=== PATIENT | female | born 1975 | race Caucasian/White ===

== ENCOUNTER 2021-05-08 16:11 | Outpatient (REF) | payer OTHER, SELFPAY ==
--- NOTE | ~2021-05-08 | MM_ITS ---
EXAMINATION: MM SCREENING DIGITAL BREAST TOMOSYNTHESIS, BILATERAL CLINICAL INFORMATION: Screening. Asymptomatic. No prior breast imaging. Age 46. Family history breast cancer maternal grandmother. The lifetime risk of breast cancer based on the Tyrer-Cuzick Model is 13%. COMPARISON: None (current study represents initial baseline exam). TECHNIQUE: Digital breast tomosynthesis is performed in both the craniocaudal and mediolateral oblique views along with computer-aided detection (CAD). Synthesized 2D images are generated from the tomosynthesis. FINDINGS: The breasts are almost entirely fatty (ACR BI-RADS breast composition Category a). There are normal background stromal markings. There is no mass or architectural abnormality. No abnormal calcifications. Dermal lesion overlies the inferior posterior medial right breast. The axilla are unremarkable. MM/MM tomosynthesis screening BI IMPRESSION: No mammographic evidence of malignancy. ASSESSMENT: BI-RADS 2: Benign RECOMMENDATION: Routine annual mammography screening. This patient's information was entered into a reminder system with a target due date for their next mammogram.
== END 2021-05-08 16:12 | disposition home or self-care (01) ==
LOC: HO.MAMMO 16:11
PROVIDERS: Visit Provider Registered Nurse Community Health
DX: Z12.31 Encounter for screening mammogram for malignant neoplasm of breast (principal)
CPT/HCPCS: 77063; 77067

== ENCOUNTER 2021-06-23 16:00 | Outpatient (RCR) | payer OTHER, SELFPAY | END 2021-08-05 11:50 | disposition home or self-care (01) | LOC: HO.PT 16:00 | PROVIDERS: PCP Registered Nurse Community Health; Visit Provider Registered Nurse Community Health | DX: M54.2 Cervicalgia (principal) | CPT/HCPCS: 97014; 97110; 97140; 97161; 97530 ==

== ENCOUNTER 2022-05-13 16:14 | Outpatient (REF) | payer OTHER, SELFPAY ==
--- NOTE | ~2022-05-13 | MM_ITS ---
EXAMINATION: MM SCREENING DIGITAL BREAST TOMOSYNTHESIS, BILATERAL CLINICAL INFORMATION: Screening. Asymptomatic. The lifetime risk of breast cancer based on the Tyrer-Cuzick Model is 12%. COMPARISON: Mammography: 05/08/2021 (baseline) TECHNIQUE: Digital breast tomosynthesis is performed in both the craniocaudal and mediolateral oblique views along with computer-aided detection (CAD). Synthesized 2D images are generated from the tomosynthesis. FINDINGS: The breasts are almost entirely fatty (ACR BI-RADS breast composition Category a). There are no significant masses, abnormal calcifications, or other abnormalities. Background stromal markings are normal. No developing density or architectural abnormality. Dermal lesion again seen overlying the posterior medial right breast. The axilla are unremarkable. No significant changes. MM/MM tomosynthesis screening BI IMPRESSION: No mammographic evidence of malignancy. ASSESSMENT: BI-RADS 2: Benign RECOMMENDATION: Routine annual mammography screening. This patient's information was entered into a reminder system with a target due date for their next mammogram.
== END 2022-05-13 16:15 | disposition home or self-care (01) ==
LOC: HO.MAMMO 16:14
PROVIDERS: PCP Registered Nurse; Visit Provider Registered Nurse
DX: Z12.31 Encounter for screening mammogram for malignant neoplasm of breast (principal)
CPT/HCPCS: 77063; 77067

== ENCOUNTER 2023-05-17 15:47 | Outpatient (REF) | payer MEDICAID, SELFPAY ==
--- NOTE | ~2023-05-17 | MM_ITS ---
EXAMINATION: MM SCREENING DIGITAL BREAST TOMOSYNTHESIS, BILATERAL CLINICAL INFORMATION: Screening. Asymptomatic. COMPARISON: Mammography: This study is compared with prior exams dating back to 2020. TECHNIQUE: Digital breast tomosynthesis is performed in both the craniocaudal and mediolateral oblique views along with computer-aided detection (CAD). Synthesized 2D images are generated from the tomosynthesis. FINDINGS: The breasts are almost entirely fatty (ACR BI-RADS breast composition Category a). There are no significant masses, abnormal calcifications, or other abnormalities. MM/MM tomosynthesis screening BI IMPRESSION: No mammographic evidence of malignancy. ASSESSMENT: BI-RADS BI-RADS 1 - Negative RECOMMENDATION: Routine annual mammography screening. 1 year F/U This examination should not preclude the clinical evaluation of a suspicious palpable abnormality. This patient's information was entered into a reminder system with a target due date for their next mammogram.
== END 2023-05-17 15:48 | disposition home or self-care (01) ==
LOC: HO.MAMMO 15:47
PROVIDERS: PCP Internal Medicine; Visit Provider Registered Nurse
DX: Z12.31 Encounter for screening mammogram for malignant neoplasm of breast (principal)
CPT/HCPCS: 77063; 77067

== ENCOUNTER → 2023-05-17 16:00 | Outpatient (BNV) | payer MEDICAID, SELFPAY | PROVIDERS: PCP Internal Medicine; Visit Provider Radiology Diagnostic Radiology | DX: Z12.31 Encounter for screening mammogram for malignant neoplasm of breast (principal) | CPT/HCPCS: 77063; 77067 ==

== ENCOUNTER 2023-06-22 12:15 | Outpatient (REF) | payer MEDICAID, SELFPAY ==
[2023-06-22 13:19] LABS: MANUAL DIFF FLAG NO
[2023-06-22 13:32] LABS: Red Cell Distribution Width 12.9 % (11.0-16.0); SCAN SMEAR FLAG 1
[2023-06-22 13:34] LABS: Basophils Absolute Auto 0.1 X10*3/uL (0.0-0.2); Basophils Percent Auto 0.8 % (0-2); Eosinophils Absolute Auto 0.3 X10*3/uL (0.0-0.4); Eosinophils Percent Auto 3.5 % (0-4); Hematocrit 40.9 % (37.0-47.0); Hemoglobin 13.6 g/dl (12.0-16.0); Imm Gran Abs Auto 0.01 X10*3/uL (0.00-0.03); Imm Gran Pct Auto 0.1 % (0.0-0.4); Lymphocytes Absolute Auto 3.6 X10*3/uL (1.2-4.9); Lymphocytes Percent Auto 37.7 % (20-40); Mean Corpuscular HGB Conc 33.3 g/dl (31.0-35.0); Mean Corpuscular Hemoglobin 29.6 pg (27.0-33.0); Mean Corpuscular Volume 88.9 fL (80.0-98.0); Mean Platelet Volume 13.5 fL (9.4-12.3); Monocytes Absolute Auto 0.6 X10*3/uL (0.1-1.2); Monocytes Percent Auto 5.9 % (2-11); Neutrophils Absolute Auto 4.9 x10*3/uL (2.0-8.3); Platelet Count 265 X10*3/uL (160-400); White Blood Count 9.5 X10*3/uL (4.8-10.8)
[2023-06-22 13:36] LABS: PLT ABN DIST 1
[2023-06-22 13:40] LABS: Estimated Average Glucose 103 mg/dL; Hemoglobin A1c % 5.2 % (<6.0)
[2023-06-22 14:18] LABS: Alanine Aminotransferase 17 U/L (0-31); Albumin Level 4.1 g/dL (3.5-5.0); Alkaline Phosphatase 63 U/L (39-117); Anion Gap 12 (12-20); Aspartate Amino Transferase 19 U/L (5-31); Bilirubin Direct 0.2 mg/dL (0.0-0.5); Bilirubin Total 0.3 mg/dL (0.0-1.0); Blood Urea Nitrogen 9 mg/dL (9-16); Calcium 9.7 mg/dL (8.4-10.2); Carbon Dioxide 26 mmol/L (22-29); Chloride 106 mmol/L (96-108); Cholesterol 182 mg/dL (<200); Estimated Glomerular Filt Rate > 60; Glucose Random 82 mg/dL (60-115); HDL Cholesterol 55 mg/dL (>40); LDL Cholesterol Calculated 109 mg/dL (<100); Potassium 3.9 mmol/L (3.3-5.1); Sodium 140 mmol/L (135-145); TSH reflex Free T4 0.73 uIU/mL (0.32-4.0); Total Protein 6.8 g/dL (6.5-8.0); Triglycerides 94 mg/dL (<150)
== END 2023-06-22 12:16 | disposition home or self-care (01) ==
LOC: HO.HHCL 12:15
PROVIDERS: Visit Provider Internal Medicine
DX: Z00.00 Encounter for general adult medical examination without abnormal findings (principal); E66.01 Morbid (severe) obesity due to excess calories; Z68.41 Body mass index [BMI] 40.0-44.9, adult
CPT/HCPCS: 36415; 80048; 80061; 80076; 83036; 84443; 85025

== ENCOUNTER 2023-07-09 12:23 | Outpatient (REF) | payer MEDICAID, SELFPAY ==
--- NOTE | ~2023-07-09 | XR_ITS ---
EXAMINATION: XR CHEST CLINICAL INFORMATION: Bronchitis, cough for 2 months. COMPARISON: None available. TECHNIQUE: 2 views of the chest were obtained. FINDINGS: No significant abnormality is noted involving the heart, lungs, mediastinum, bony thorax or soft tissues. XR/XR chest 2V IMPRESSION: Unremarkable chest examination.
== END 2023-07-09 12:24 | disposition home or self-care (01) ==
LOC: HO.HHCX 12:23
PROVIDERS: Visit Provider Internal Medicine
DX: J40 Bronchitis, not specified as acute or chronic (principal)
CPT/HCPCS: 71046

== ENCOUNTER 2023-12-16 16:37 | Emergency (ER) | payer OTHER, SELFPAY ==
--- NOTE | ~2023-12-16 | CT_ITS ---
EXAMINATION: CT HEAD WITHOUT CONTRAST CLINICAL INFORMATION: Fall head strike COMPARISON: None TECHNIQUE: Contiguous axial imaging was performed from the skull base to vertex without intravenous administration of contrast. This CT examination was performed using dose optimization techniques as appropriate, variously including the following: *Automated exposure control *Adjustment of mA and/or kV according to patient size (this includes techniques or standardized protocols for targeted exams where dose is matched to indication/reason for exam; i.e. extremities or head) *Use of iterative reconstruction technique DLP: 1123 mGy-cm FINDINGS: There is no evidence of acute intracranial hemorrhage or territorial infarction. No abnormal mass effect or midline shift is seen. Almaguer to white matter differentiation is well preserved. No extra-axial fluid collections are identified. The ventricles are normal in size. There is no abnormal attenuation within the brain parenchyma. The osseous structures and soft tissues are normal. The mastoid air cells and visualized portions of the paranasal sinuses are well aerated. CT/CT cervical spine wo IV con IMPRESSION: No acute intracranial pathology. EXAMINATION: Noncontrast CT scan of the cervical spine. INDICATION: Neck pain COMPARISON: None. TECHNIQUE: Helical, multidetector axial images were obtained from the occiput to the upper thorax. Coronal and sagittal reformats of the cervical spine were provided for interpretation. DLP: 1123 mGy-cm FINDINGS: No acute fractures or dislocations of the cervical spine are seen. Straightening of the normal cervical curvature. Anatomic alignment and positioning of the vertebral bodies and posterior elements is noted. The atlantoaxial joint and craniovertebral articulations are normal without evidence of subluxation. There is no prevertebral soft tissue swelling. The thyroid gland and visualized portions of the lung apices and mediastinum are unremarkable. IMPRESSION: 1. No acute visible fracture or dislocation. 2. Straightening of the normal cervical curvature.
--- NOTE | ~2023-12-16 | CT_ITS ---
EXAMINATION: CT CHEST, ABDOMEN AND PELVIS withoutCONTRAST CLINICAL INFORMATION: Trauma. COMPARISON: None. TECHNIQUE: Multidetector volumetric CT imaging of the chest, abdomen and pelvis was obtained . Coronal, Sagittal reformatted images preformed at the CT scanner. [This CT examination was performed using dose optimization techniques as appropriate, variously including the following: *Automated exposure control *Adjustment of mA and/or kV according to patient size (this includes techniques or standardized protocols for targeted exams where dose is matched to indication/reason for exam; i.e. extremities or head) *Use of iterative reconstruction technique] DLP: 1421 mGy-cm. FINDINGS: CT CHEST: Lungs: The lungs are clear with no evidence of inflammation or nodules. Mediastinum: The mediastinum is normal. Coronary arteries: No coronary calcification Pleura: There is no pleural effusion. No pleural mass or thickening. Axilla: No lymphadenopathy. CT ABDOMEN AND PELVIS: Liver, Gallbladder and Biliary Tree: The liver is normal in size, shape, and attenuation. No focal hepatic lesion or biliary ductal dilatation is present. The gallbladder is unremarkable with no evidence of radiopaque gallstones, gallbladder wall thickening, or obvious pericholecystic inflammatory changes. Pancreas: No acute change of the pancreas. No mass. No pancreatic duct dilatation. Spleen: Spleen normal in size and contour. No focal lesion. Adrenal Glands: Adrenal glands are normal in size. No focal mass. Kidneys and Ureters: The kidneys are normal in size, shape, and attenuation. No hydronephrosis, hydroureter, or calculi seen. No perinephric stranding. Bladder: Unremarkable. Gastrointestinal Tract: There are scattered diverticula of the sigmoid colon. There is no diverticulitis. There is no bowel wall thickening /edema. There is no bowel obstruction. There is a moderate volume of stool in the colon. The appendix is normal . The small bowel loops are unremarkable. The stomach is normal. There is no hiatal hernia. Mesentery: No focal inflammation. No free fluid. No free air. Abdominal Wall: No significant hernia is appreciated. Lymph Nodes: Normal. Vascular: Unremarkable. Pelvic Viscera: Unremarkable. Osseous Structures: No acute osseous abnormality. Degenerative changes of the lumbosacral junction. Vacuum disc changes of the L5-S1 disc with vertebral endplate spurs. CT/CT abdomen pelvis wo IV con IMPRESSION: No acute abnormality CT of the chest, abdomen or pelvis.
--- NOTE | 2023-12-16 16:47 | ED.GENADULT ---
HPI - General Adult General Chief complaint: Fall Stated complaint: head neck in inj Related Data Allergies Allergy/AdvReac Type Severity Reaction Status Date / Time No Known Allergies Allergy Mild NOT Verified 12/16/23 16:53 APPLICABLE [facility] Social History Social History Advance Directives: No Advance Directives Information Provided: No Physical Exam ED Vital Signs: BMI result Body Mass Index 37.5 Course Course Course Narrative: This is an RME done by IVANIA Cat: Additional HPI, ROS, PE not included below will be deferred to primary provider. 48 year old female no known pmh presents with complaints of pain from fall onto stomach at work this Wednesday. Patient states she has pain in neck, bilateral wirsts, right lower extremity and knee . Pt states later that same day she subsequently was stroke in the head in the center/top of her head and now has consistent head and neck pain in the back of her neck and towards the right side. She states she did not initially hit her head or lose consciousness when she fell. Pt states she is not on blood thinners. Denies numbness and tingling in extremities. No blurry or double vision. Also reports right eyelid drooping and feeling of heaviness. Appearance: Alert.? Oriented X3.? No acute cardiopulmonary distress distress.? Head: Slight tenderness to palpation. Normocephalic, no step-offs or deformities Eyes: Slight eyelid droooping of right eye. NIRU Neck: Normal inspection.? Neck supple.?Discomfort with ROM CVS: Pulses normal.? Respiratory: No respiratory distress.? Abdomen: Soft and nontender.? Skin: ? Normal skin color. Extremities: 5/5 strength to bilateral upper and lower extremities Back: No midline tenderness, no C-spine tenderness, full range of motion, No CVA tenderness bilaterally Neuro: Oriented X 3.? No motor deficit.? No sensory deficit. Medical Decision Making Lab Data 12/16/23 17:20 12/16/23 17:20 Labs: Lab Results 12/16/23 12/16/23 Range/Units 17:20 19:31 WBC 10.9 H (4.8-10.8) X10*3/uL RBC 4.35 (4.20-5.50) X10*6/uL Hgb 13.4 (12.0-16.0) g/dl Hct 38.8 (37.0-47.0) % MCV 89.2 (80.0-98.0) fL MCH 30.8 (27.0-33.0) pg MCHC 34.5 (31.0-35.0) g/dl RDW 13.0 (11.0-16.0) % Plt Count 294 (160-400) X10*3/uL MPV 12.6 H (9.4-12.3) fL Immature Gran % (Auto) 0.4 (0.0-0.4) % Neut % (Auto) 49.0 (45-73) % Lymph % (Auto) 39.7 (20-40) % Po[place]ett % (Auto) 7.0 (2-11) % Eos % (Auto) 2.7 (0-4) % Baso % (Auto) 1.2 (0-2) % Lymph # (Auto) 4.3 (1.2-4.9) X10*3/uL [place] # (Auto) 0.8 (0.1-1.2) X10*3/uL Eos # (Auto) 0.3 (0.0-0.4) X10*3/uL Baso # (Auto) 0.1 (0.0-0.2) X10*3/uL Abs Immat Gran (auto) 0.04 H (0.00-0.03) X10*3/uL Absolute Neuts (auto) 5.4 (2.0-8.3) x10*3/uL Absolute Nucleated RBC 0.000 (0.0-0.012) X10*3/uL Nucleated RBC % (auto) 0.0 (0.0-0.2) /100WBC PT 11.0 L (11.1-13.3) SEC INR 0.9 (0.9-1.1) Sodium 143 (135-145) mmol/L Potassium 3.4 (3.3-5.1) mmol/L Chloride 107 (96-108) mmol/L Carbon Dioxide 26 (22-29) mmol/L Anion Gap 13 (12-20) BUN 12 (9-16) mg/dL Creatinine 0.70 (0.5-1.4) mg/dL Estim Creat Clear Calc 127.4 Estimated GFR > 60 Random Glucose 81 (60-115) mg/dL Calcium 9.7 (8.4-10.2) mg/dL Magnesium 2.0 (1.6-2.6) mg/dL Total Bilirubin 0.2 (0.0-1.0) mg/dL AST 18 (5-31) U/L ALT 13 (0-31) U/L Alkaline Phosphatase 71 (39-117) U/L Total Protein 7.2 (6.5-8.0) g/dL Albumin 4.5 (3.5-5.0) g/dL Urine Color Yellow Urine Appearance Clear Urine pH 5.5 (5.0-9.0) Ur Specific Napier 1.010 (1.005-1.025) Urine Protein Negative (Neg-Trace) mg/dL Urine Glucose (UA) Negative (Negative) mg/dL Urine Ketones Negative (Negative) mg/dL Urine Blood Negative (Negative) Urine Nitrite Negative (Negative) Ur Leukocyte Esterase Negative (Negative) Discharge Plan Discharge Clinical Impression: Eloped from emergency department Patient Disposition: Left W/O Completing Treatment Discharge Date/Time: 12/17/23 00:24
[2023-12-16 16:48] VITALS: BP 153/92; PULSE 63; RESP 16; TEMP 36.8; O2SAT 98; BMI 37.5
[2023-12-16 17:23] LABS: MANUAL DIFF FLAG NO
[2023-12-16 17:24] LABS: Basophils Absolute Auto 0.1 X10*3/uL (0.0-0.2); Basophils Percent Auto 1.2 % (0-2); Eosinophils Absolute Auto 0.3 X10*3/uL (0.0-0.4); Eosinophils Percent Auto 2.7 % (0-4); Hematocrit 38.8 % (37.0-47.0); Hemoglobin 13.4 g/dl (12.0-16.0); Imm Gran Abs Auto 0.04 X10*3/uL (0.00-0.03); Imm Gran Pct Auto 0.4 % (0.0-0.4); Lymphocytes Absolute Auto 4.3 X10*3/uL (1.2-4.9); Lymphocytes Percent Auto 39.7 % (20-40); Mean Corpuscular HGB Conc 34.5 g/dl (31.0-35.0); Mean Corpuscular Hemoglobin 30.8 pg (27.0-33.0); Mean Corpuscular Volume 89.2 fL (80.0-98.0); Mean Platelet Volume 12.6 fL (9.4-12.3); Monocytes Absolute Auto 0.8 X10*3/uL (0.1-1.2); Neutrophils Absolute Auto 5.4 x10*3/uL (2.0-8.3); Platelet Count 294 X10*3/uL (160-400); Red Blood Count 4.35 X10*6/uL (4.20-5.50); White Blood Count 10.9 X10*3/uL (4.8-10.8)
[2023-12-16 17:30] LABS: INTERNATIONAL NORM RATIO 0.9 (0.9-1.1)
[2023-12-16 17:38] LABS: Alanine Aminotransferase 13 U/L (0-31); Albumin Level 4.5 g/dL (3.5-5.0); Alkaline Phosphatase 71 U/L (39-117); Anion Gap 13 (12-20); Aspartate Amino Transferase 18 U/L (5-31); Bilirubin Total 0.2 mg/dL (0.0-1.0); Blood Urea Nitrogen 12 mg/dL (9-16); Calcium 9.7 mg/dL (8.4-10.2); Carbon Dioxide 26 mmol/L (22-29); Chloride 107 mmol/L (96-108); Creatinine Clr Calc Pharmacy 127.4; Estimated Glomerular Filt Rate > 60; Glucose Random 81 mg/dL (60-115); Potassium 3.4 mmol/L (3.3-5.1); Sodium 143 mmol/L (135-145); Total Protein 7.2 g/dL (6.5-8.0)
[2023-12-16 19:39] LABS: Appearance Urine Clear; Color Urine Yellow; Glucose Urine UA Negative (Negative); Leukocyte Esterase Urine Negative (Negative); Nitrite Urine Negative (Negative); PH 5.5 (5.0-9.0); Urine Blood Negative (Negative); Urine Ketones Negative (Negative); Urine Protein Negative (Neg-Trace)
== END 2023-12-17 00:24 | disposition left against medical advice (07) ==
PROVIDERS: Physician Assistant; Emergency Provider Emergency Medicine; PCP Internal Medicine
DX: S09.90XA Unspecified injury of head, initial encounter (principal); S19.9XXA Unspecified injury of neck, initial encounter; X58.XXXA Exposure to other specified factors, initial encounter; Y93.9 Activity, unspecified; Y92.9 Unspecified place or not applicable; Y99.9 Unspecified external cause status
CPT/HCPCS: 36415; 70450; 71250; 72125; 74176; 80053; 81003; 83735; 85025; 85610; 99282; 99284

== ENCOUNTER 2024-05-22 15:52 | Outpatient (REF) | payer MEDICAID, SELFPAY ==
--- NOTE | ~2024-05-22 | MM_ITS ---
EXAMINATION: MM SCREENING DIGITAL BREAST TOMOSYNTHESIS, BILATERAL CLINICAL INFORMATION: Screening. Asymptomatic. COMPARISON: Mammography: Comparison is made with available priors TECHNIQUE: Digital breast mammography with tomosynthesis is performed in both the craniocaudal and mediolateral oblique views along with computer-aided detection (CAD). FINDINGS: There are scattered areas of fibroglandular density (ACR BI-RADS breast composition Category b). There are no significant masses, abnormal calcifications, or other abnormalities. MM/MM tomosynthesis screening BI IMPRESSION: No mammographic evidence of malignancy. ASSESSMENT: BI-RADS BI-RADS 1 - Negative RECOMMENDATION: Routine annual mammography screening. 1 year F/U This examination should not preclude the clinical evaluation of a suspicious palpable abnormality. This patient's information was entered into a reminder system with a target due date for their next mammogram. Electronically signed by: Yolie Monsalve DO 05/31/2024 12:20 PM PAUL
== END 2024-05-22 15:53 | disposition home or self-care (01) ==
LOC: HO.MAMMO 15:52
PROVIDERS: PCP Internal Medicine; Visit Provider Internal Medicine
DX: Z12.31 Encounter for screening mammogram for malignant neoplasm of breast (principal)
CPT/HCPCS: 77063; 77067

== ENCOUNTER → 2024-05-22 16:00 | Outpatient (BNV) | payer MEDICAID, SELFPAY | PROVIDERS: PCP Internal Medicine; Visit Provider Internal Medicine | DX: Z12.31 Encounter for screening mammogram for malignant neoplasm of breast (principal) | CPT/HCPCS: 77063; 77067 ==

== ENCOUNTER 2024-06-12 12:42 | Outpatient (REF) | payer MEDICAID, SELFPAY ==
[2024-06-12 13:18] LABS: MANUAL DIFF FLAG NO
[2024-06-12 13:40] LABS: Basophils Absolute Auto 0.1 X10*3/uL (0.0-0.2); Basophils Percent Auto 0.6 % (0-2); Eosinophils Absolute Auto 0.1 X10*3/uL (0.0-0.4); Eosinophils Percent Auto 0.7 % (0-4); Hematocrit 38.2 % (37.0-47.0); Hemoglobin 13.5 g/dl (12.0-16.0); Imm Gran Abs Auto 0.04 X10*3/uL (0.00-0.03); Imm Gran Pct Auto 0.3 % (0.0-0.4); Lymphocytes Absolute Auto 3.8 X10*3/uL (1.2-4.9); Lymphocytes Percent Auto 31.3 % (20-40); Mean Corpuscular HGB Conc 35.3 g/dl (31.0-35.0); Mean Corpuscular Hemoglobin 30.8 pg (27.0-33.0); Mean Platelet Volume 13.3 fL (9.4-12.3); Monocytes Absolute Auto 0.8 X10*3/uL (0.1-1.2); Monocytes Percent Auto 6.6 % (2-11); Neutrophils Absolute Auto 7.3 x10*3/uL (2.0-8.3); Neutrophils Percent Auto 60.5 % (45-73); Platelet Count 259 X10*3/uL (160-400); Red Blood Count 4.39 X10*6/uL (4.20-5.50); Red Cell Distribution Width 12.5 % (11.0-16.0)
[2024-06-12 14:07] LABS: Alanine Aminotransferase 16 U/L (0-31); Albumin Level 4.4 g/dL (3.5-5.0); Alkaline Phosphatase 71 U/L (39-117); Amylase 25 U/L (28-100); Anion Gap 11 (12-20); Aspartate Amino Transferase 21 U/L (5-31); Bilirubin Total 0.3 mg/dL (0.0-1.0); Blood Urea Nitrogen 7 mg/dL (9-16); Calcium 9.3 mg/dL (8.4-10.2); Carbon Dioxide 30 mmol/L (22-29); Chloride 102 mmol/L (96-108); Estimated Glomerular Filt Rate > 60; Glucose Random 85 mg/dL (60-115); Potassium 3.1 mmol/L (3.3-5.1); Sodium 140 mmol/L (135-145); Total Protein 7.1 g/dL (6.5-8.0)
== END 2024-06-12 12:43 | disposition home or self-care (01) ==
LOC: HO.HHCL 12:42
PROVIDERS: Visit Provider Nurse Practitioner Family
DX: K21.00 Gastro-esophageal reflux disease with esophagitis, without bleeding (principal)
CPT/HCPCS: 36415; 80053; 82150; 85025

== ENCOUNTER 2024-11-02 11:35 | Outpatient (REF) | payer MEDICAID, SELFPAY ==
[2024-11-02 13:16] LABS: MANUAL DIFF FLAG NO
[2024-11-02 13:32] LABS: Estimated Average Glucose 105 mg/dL; Hemoglobin A1C 119.4035 umol/L; Hemoglobin A1c % 5.3 % (<6.0); Total Hemoglobin (HGBA1C) 3496.0998 umol/L
[2024-11-02 13:35] LABS: Basophils Absolute Auto 0.1 X10*3/uL (0.0-0.2); Basophils Percent Auto 0.8 % (0-2); Eosinophils Absolute Auto 0.4 X10*3/uL (0.0-0.4); Hematocrit 39.1 % (37.0-47.0); Hemoglobin 13.3 g/dl (12.0-16.0); Imm Gran Abs Auto 0.13 X10*3/uL (0.00-0.03); Lymphocytes Absolute Auto 4.4 X10*3/uL (1.2-4.9); Lymphocytes Percent Auto 33.4 % (20-40); Mean Corpuscular Hemoglobin 30.4 pg (27.0-33.0); Mean Corpuscular Volume 89.3 fL (80.0-98.0); Monocytes Absolute Auto 0.8 X10*3/uL (0.1-1.2); Neutrophils Absolute Auto 7.4 x10*3/uL (2.0-8.3); Neutrophils Percent Auto 55.8 % (45-73); Platelet Count 291 X10*3/uL (160-400); Red Blood Count 4.38 X10*6/uL (4.20-5.50); Red Cell Distribution Width 13.1 % (11.0-16.0); White Blood Count 13.3 X10*3/uL (4.8-10.8)
[2024-11-02 13:46] LABS: Alanine Aminotransferase 37 U/L (0-31); Anion Gap 11 (12-20); Aspartate Amino Transferase 33 U/L (5-31); Bilirubin Total 0.3 mg/dL (0.0-1.0); Blood Urea Nitrogen 12 mg/dL (9-16); Carbon Dioxide 28 mmol/L (22-29); Chloride 107 mmol/L (96-108); Cholesterol 184 mg/dL (<200); Estimated Glomerular Filt Rate > 60; Glucose Random 81 mg/dL (60-115); HDL Cholesterol 56 mg/dL (>40); LDL Cholesterol Calculated 102 mg/dL (<100); Potassium 4.1 mmol/L (3.3-5.1); Sodium 142 mmol/L (135-145); Total Protein 6.4 g/dL (6.5-8.0); Triglycerides 132 mg/dL (<150)
[2024-11-02 14:05] LABS: TSH reflex Free T4 0.84 uIU/mL (0.32-4.0); Vitamin D 25-OH Total 55.6 ng/mL (>30)
[2024-11-02 14:09] LABS: Alkaline Phosphatase 76 U/L (39-117)
--- OUTSIDE RECORDS SUMMARY | 2024-11-02 14:23 | XMS_ITS | Encounter Summary ---
Author Organization [employer] Address [address] [place] [address] Care Team Providers Care Counter Helper Name Role Phone Meg Sanchez MD Primary Care Provide r Encounter Details Date Type Department Care Team (Latest Contact Info) Description 11/02/2024 Travel Social History Tobacco Use Types Packs/Day Years Used Date Smoking Tobacco: Every Day Cigarettes 0.5 15 Passive Smoke Exposure: Current Smokeless Tobacco: Never Alcohol Use Standard Drinks/Week Comments Never 0 (1 standard drink = 0.6 oz pur e alcohol) Depression Answer Date Recorded Patient Health Questionnaire-9 Score 0 06/12/2024 Patient Health Questionnaire-9 Score 0 06/12/2024 Last PHQ-9: Questionnaire Data Not on file 1 08/12/2023 Housing Stability Answer Date Recorded What is your housing situation today? I have eva santoro 06/12/[address] you li ve. Do you have problems with any of the following? None of the above 06/12/2024 Food Insecurity Answer Date Recorded Within the past 12 months, y ou worried that your food would run out before you got money to buy more: Never True 06/12/2024 Within the past 12 months,th e food you bought just didn't last and you didn't have enough money to get more: Never True Transportation Answer Date Recorded In the past 12 months, has l ack of transportation kept you from medical appts, meetings, work or from getting things needed for daily living? No 06/12/2024 Utilities Answer Date Recorded In the past 12 months, has t he electric, gas, oil or water company threatened to shut off services in your home? No 06/12/2024 Depression Answer Date Recorded Patient Health Questionnaire-2 Score 0 06/12/2024 Internet Access Answer Date Recorded Internet Access Q1 Yes 06/12/2024 Internet Access Q2 Not on file 06/12/2024 Comments No Sex and Gender Information Value Date Recorded Sex Assigned at Female 05/18/2022 10:30 AM EDT Legal Sex Female 10:30 AM EDT Gender Identity Female 05/18/2022 10:30 AM EDT Sexual Orientation Straight 04/14/2023 12 :15 PM EDT documented as of this encounter Plan of Treatment Upcoming Encounters Date Type Department Care Team (Late st Contact Info) Description 12/14/2024 10:45 AM EDT Telemedicine [facility] [address] [place] [phone] Meg Sanchez MD [address] [place] [phone] documented as of this encounter Visit Diagnoses Not on filedocumented in this encounter Additional Health Concerns Assessment Noted Time PHQ-9 Depression Total Score: 0 06/12/20 24 12:38 PM EST documented as of this encounter Care Teams Counter Helper Relationship Specialty Start Date End Date Meg Sanchez MD [address] [place] [phone] PCP - General Internal Medicine 05/13/23 documented as of this encounter
--- OUTSIDE RECORDS SUMMARY | 2024-11-02 14:23 | XMS_ITS | Clinical Summary ---
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 18 g 07/09/20 23 Active nicotine polacrilex (Nicorette) 4 MG gumIndications :Tobacco dependence Chew 1 each (4 mg) if needed for smoking cessation. 100 each 07/09/20 23 Active semaglutide (Ozempic) 2 MG/1.5ML solution pen-injectorIn dications:Clas s 2 obesity due to excess calories without serious comorbidity with body mass index (BMI) of 38.0 to 38.9 in adult Inject 0.25 mg under the skin 1 (one) time per week. 1 each 10/28/19 24 Active fluticasone (Flonase) 50 MCG/ACT nasal sprayIndicatio ns:Acute maxillary sinusitis, recurrence not specified Administer 1-2 sprays into each nostril Once per day. Shake gently. Before first use, prime pump. After use, clean tip and replace cap. 16 g 2 06/13/20 24 025 Active Saline 0.9 % solutionIndica tions:Acute maxillary sinusitis, recurrence not specified Administer 1 drop into affected nostril(s) 2 times daily. 15 mL 06/13/20 24 Active pantoprazole (ProtoNix) 40 MG EC tablet TAKE 1 TABLET (40 MG) BY MOUTH BEFORE BREAKFAST. DO NOT CRUSH, CHEW, OR SPLIT. 90 tablet 10/13/19 25 025 Active nicotine polacrilex (Commit) 2 MG lozenge Dissolve 1 lozenge (2 mg) in the mouth if needed for smoking cessation. 100 lozenge 10/26/19 25 025 Active azithromycin (Zithromax) 250 MG tabletIndicati ons:Bronchitis Take 2 tabs PO daily x 1d then 1 tab PO daily on D2 to D5 6 tablet 10/26/19 25 Active Blood Pressure kit 1 each 2 times daily. 1 kit 10/26/19 25 026 Active phentermine 15 MG capsuleIndicat ions:Class 2 obesity without serious comorbidity with body mass index (BMI) of 38.0 to 38.9 in adult, unspecified obesity type Take 1 capsule (15 mg) by mouth before breakfast. 30 capsule 11/03/19 25 025 Active topiramate (Topamax) 25 MG tabletIndicati ons:Class 2 obesity without serious comorbidity with body mass index (BMI) of 38.0 to 38.9 in adult, unspecified obesity type Take 1 tablet (25 mg) by mouth Once per day. 30 tablet 1 11/03/19 25 026 Active azithromycin (Zithromax) 250 MG tabletIndicati ons:Bronchitis Take 2 tabs PO daily x 1d then 1 tab PO daily on D2 to D5 6 tablet 07/09/20 23 025 Discontinued(Re order (will not trigger notification to Pharmacy)) pantoprazole (ProtoNix) 40 MG EC tablet TAKE 1 TABLET (40 MG) BY MOUTH BEFORE BREAKFAST. DO NOT CRUSH, CHEW, OR SPLIT. 90 tablet 07/05/20 24 025 Discontinued predniSONE (Deltasone) 20 MG tablet Take 2 tablets (40 mg) by mouth Once per day for 5 days. 10 tablet 10/26/19 25 025 Active Problems Problem Noted Date Diagnosed Date Epigastric pain 06/13/2024 Assessment & Plan (06/13/2024 4:20 PM EST): I advise patient to avoid NSAIDs, spicy and acid food, I advise to eat at the same time every day, I advise to elevate the head of the bed and take medications as prescribe C/w omeprazole 40mg and sucralfate H pylori test ordered GI referral ED precautions where reviewed with patient, if pain persists or worse go to the emergency room Acute maxillary sinusitis 06/13/2024 Assessment & Plan (06/13/2024 4:21 PM EST): Flonase and saline solution May take antihistaminic If problem persist or worse report back or come directly to [facility] Hypokalemia 06/13/2024 Assessment & Plan (06/13/2024 4:22 PM EST): Labs where reviewed with patient I let her know her potassium is low, I prescribed for her supplementation and instructed to return to repeat labs after she finish GERD (gastroesophageal reflux disease) Assessment & Plan (06/13/2024 4:20 PM EST): As above Elevated blood pressure reading 06/13/2024 Assessment & Plan (06/13/2024 4:23 PM EST): Patient reports this is due to pain, she reports blood pressure is normal at home I advise to monitor her BP and report back Gastroesophageal reflux dise ase with esophagitis without hemorrhage 06/12/2024 Assessment & Plan (07/08/2024 5:07 PM EST): Presumed acid reflux with possible pud, Labs as ordered below, start ppi, sucralfate prn Pt has physical scheduled for tomorrow Reviewed low acid diet, small frequent meals, mininimize caffeine, tobacco avoid nsaid and etoh Class 2 obesity without seri ous comorbidity with body mass index (BMI) of 38.0 to 38.9 in adult 10/28/2023 Assessment & Plan (11/02/2024 1:51 PM EDT): Today extensive discussion was done about life style modifications I advise healthy diet (low calorie) and cardiovascular exercise Patient instructed to do her labs downstairs to rule out factors that could influence her difficulty to lose the weight I will start patient on phentermine 15 mg daily together with Topamax 25 mg daily I will follow-up with patient in about 4 weeks, patient was educated about side effects of these medications Assessment & Plan (10/28/2023 11:38 AM EDT): Today extensive discussion was done about life style modifications I advise healthy diet (low calorie) and cardiovascular exercise I explain to patient that this medications are cover by insurance only for diabetes (ozempic), they are not cover by insurance officially for weight loss, patient agreed for me to send ozempic to pharmacy to see if she can pay out of pocket, discussion about side effects of this medication was done today Bronchitis 07/09/2023 Assessment & Plan (07/09/2023 1:40 PM EST): Drink plenty of fluids and rest Tobacco dependence 07/09/2023 Anxiety with depression 05/13/2023 Assessment & Plan (06/09/2023 3:46 PM EST): Controlled, c/w same interventions Assessment & Plan (05/13/2023 2:45 PM EDT): Counseling done patient will consider medications BHN referral done Health care maintenance 05/13/2023 Class 3 severe obesity due t o excess calories without serious comorbidity in adult 05/13/2023 Assessment & Plan (05/13/2023 2:44 PM EDT): Counseling done today Patient will consider going to bariatric specialist Colon cancer screening 05/13/2023 Hyperlipidemia 03/19/2021 05/12/2023 Encounters Date Type Department Care Team Description 11/02/2024 10:45 AM EDT Office Visit [facility] [address] [place] [address] Meg Sanchez MD Class 2 obesity without serious comorbidity with body mass index (BMI) of 38.0 to 38.9 in adult, unspecified obesity type (Primary Dx) 11/02/2024 Travel 11/01/2024 Travel 10/26/[address] [facility] [address] [place] [address] Meg Sanchez MD Chart Prep 10/25/2024 11:00 AM EDT Office Visit [facility] [address] [place], [place] [phone] Aldair Cabrera MD Mild intermittent asthma with exacerbation (Primary Dx); Acute sinusitis, recurrence not specified, unspecified location; Elevated blood pressure reading in office without diagnosis of hypertension; Tobacco dependence; Influenza-like symptoms; Acute URI; Bronchitis 10/12/[address] [facility] [address] [place] [address] Meg Sanchez MD 09/29/2024 Population Health Risk Score [facility] () Department [address] [place] [phone] Provider, Population Health Generic 09/01/[address] [facility] [address] [place] [phone] Meg Sanchez MD MAY RECALL from Last 3 Months Immunizations Name Administration Dates Next Due Influenza injectable quadriv alent IIV4 with preservative 06/24/2016 Tdap 01/31/2021 Social History Tobacco Use Types Packs/Day Years Used Date Smoking Tobacco: Every Day Cigarettes 0.5 15 Passive Smoke Exposure: Current Smokeless Tobacco: Never Tobacco Cessation:Ready to Q uit: Not Asked; Counseling Given: Not Answered Alcohol Use Standard Drinks/Week Comments Never 0 (1 standard drink = 0.6 oz pur e alcohol) Depression Answer Date Recorded Patient Health Questionnaire-9 Score 0 06/12/2024 Patient Health Questionnaire-9 Score 0 06/12/2024 Last PHQ-9: Questionnaire Data Not on file 1 08/12/2023 Housing Stability Answer Date Recorded What is your housing situation today? I have eva yvan 06/12/[address] you li [...] Orientation Straight 04/14/2023 12 :15 PM EDT Last Filed Vital Signs Vital Sign Reading Time Taken Comments Blood Pressure 128/80 11/02/2024 10:52 AM EDT Pulse 65 11/02/2024 10:52 AM EDT Temperature 36.3 ??C (97.3 ??F) 11/02/2024 10:52 AM E DT Respiratory Rate 20 11/02/2024 10:52 AM EDT Oxygen Saturation 99% 11/02/2024 10:52 AM EDT Inhaled Oxygen Concentration - - Weight 111 kg (245 lb 8 oz) 11/02/2024 10:52 AM EDT Height 170.2 cm (5' 7 ) 11/02/2024 10:52 AM EDT Body Mass Index 38.45 11/02/2024 10:52 AM EDT Plan of Treatment Upcoming Encounters Date Type Department Care Team (Late st Contact Info) Description 12/14/2024 10:45 AM EDT Telemedicine [facility] [address] [place] [address] Meg Sanchez MD [address] [place] [address] Health Maintenance Due Date Last Done Comments CT Colonography 1975 Colonoscopy 1975 Colorectal Cancer Screening 1974 FIT DNA/Cologuard 1975 FIT 1975 FOBT 1975 Sigmoidoscopy 1974 Family Planning (PISQ) 1989 Hepatitis C Screening 1992 Hepatitis B Vaccines (1 of 3 - 19+ 3-dose series) 1993 Pneumococcal Vaccine: 50+ Years (1 of 2 - PCV) 1993 Pap Smear 03/14/2024 03/14/2021 COVID-19 Vaccine (2 - season) 2024 10/25/2020 Influenza Vaccine (#1) 2024 06/24/2016 Dental Oral Exam 2024 09/24/2023, 04/28/2023 Dental Prophylaxis 2024 09/24/2023 Zoster Vaccines (1 of 2) 2024 Dental X-Ray: Bitewings 04/29/2024 04/28/2023 Mammogram 05/22/2025 05/22/2024, 04/20, 05/13/2022, Additional history exists Depression Screening 06/12/2025 06/12/2024, 06/12/20 24 SDOH Screening 06/12/2025 06/12/2024 Alcohol/Substance Use Screening 11/02/2025 11/02/2024 Tobacco Screening 11/02/2025 11/02/2024 Cervical Cancer Screening 03/14/2026 HPV/Cotest 03/14/2026 03/14/2021, 06/24/2016 Dental X-Ray: Full Mouth 04/29/2026 04/28/2023 Lipid Panel 11/02/2029 11/02/2024, 12/11/2022, 03/14/2021 DTaP/Tdap/Td Vaccines (2 - Td or Tdap) 01/31/2031 01/31/2021 RSV Patients and Patients Aged 60 years or older (1 - 1-dose 75+ series) 2049 HIV Screening Completed 03/14/2021 HIB Vaccines Aged Out No longer eligi ble based on patient's age to complete this topic HPV Vaccines Aged Out No longer eligi ble based on patient's age to complete this topic Hepatitis A Vaccines Aged Out No long er eligible based on patient's age to complete this topic IPV Vaccines Aged Out No longer eligi ble based on patient's age to complete this topic Meningococcal Vaccine Aged Out No myah joni eligible based on patient's age to complete this topic RSV under 20 months Aged Out No longe r eligible based on patient's age to complete this topic Rotavirus Vaccines Aged Out No longer eligible based on patient's age to complete this topic Procedures Procedure Name Priority Date/Time Associated Diagnosis Comments TSH W/REFLEX TO FT4 Routine 11/02/2024 1 1:40 AM EDT Gastroesophageal reflux disease, unspecified whether esophagitis present VITAMIN D,25-OH,TOTAL,IA Routine 11/02/2024 11:40 AM EDT Gastroesophageal reflux disease, unspecified whether esophagitis present LIPID PANEL, STANDARD Routine 11/02/2024 11:40 AM EDT Gastroesophageal reflux disease, unspecified whether esophagitis present HEMOGLOBIN A1C Routine 11/02/2024 11:40 AM EDT Gastroesophageal reflux disease, unspecified whether esophagitis present COMPREHENSIVE METABOLIC PANEL Routine 11/02/2024 11:40 AM EDT Gastroesophageal reflux disease, unspecified whether esophagitis present CBC WITH AUTO DIFFERENTIAL Routine 11/02/2024 11:40 AM EDT Gastroesophageal reflux disease, unspecified whether esophagitis present POCT INFLUENZA B (ID NOW RAPID MOLECULAR) Routine 10/25/2024 11:24 AM EDT Acute URI POCT INFLUENZA A (ID NOW RAPID MOLECULAR) Routine 10/25/2024 11:24 AM EDT Acute URI POCT RAPID COVID ANTIGEN Routine 10/25/2024 11:24 AM EDT Acute URI BI MAMMOGRAM SCREENING TOMOSYNTHESIS BILATERAL Routine 05/22/2024 3:55 PM EST Full PROPHYLAXIS - ADULT Routine 09/24/2023 11:00 AM EST PERIODIC ORAL EVALUATION - ESTABLISHED PATIENT Routine 09/24/2023 11:00 AM EST INTRAORAL - COMPLETE SERIES OF RADIOGRAPHIC IMAGES Routine 04/28/2023 11:00 AM EDT HIV 1/2 ANTIGEN/ANTIBODY, FOURTH GENERATION W/RFL Routine 03/14/2021 10:01 AM EDT HPV MRNA E6/E7 Routine 03/14/2021 12:00 AM EDT THINPREP PAP Routine 03/14/2021 12:00 AM EDT from Last 3 Months or Most Recently Relevant to Health Maintenance Results * Vitamin D, 25-Hydroxy, Total, Immunoassay (11/02/2024 11:40 AM EDT) Vitamin D 25-OH Total 55.6 >30 ng/mL [facility] Comment: Health Based Reference Values*< 20 ??ng/mL ??Ofsyxtksz51-63 ng/mL ??Insufficient> 30 ??ng/mL ??Sufficient*Eva ERIC. N Engl J Med. 2007;357:266-280There is no well-established upper level of normal vitamin Dlevels. Some laboratories use 50 ng/mL as an upper limit ofnormal. However, toxicity is patient-dependent and may occurat any level. Careful correlation with the patient'spresentation is necessary and, if there is concern forvitamin D toxicity, treatment should be consideredirrespective of the serum level.Care must be taken in interpreting Vitamin D results fromdifferent laboratories and methodologies. ??Published datademonstrated that results from patients undergoinghemodialysis may show a negative bias when tested withvarious automated 25-OH vitamin D assays when compared toLC- MS/MS.When testing samples from patients whose predominant form ofVitamin D is Vitamin D2, such as patients receiving VitaminD2 supplementation, results that are subtherapeutic shouldbe confirmed with another method such as LC-MS/MS. Blood Venous blood specimen / Unknown 11/02/2024 11:40 AM EDT 11/02/2024 1:13 PM EDT Meg Menard MD LAB BLOOD ORDERABLES Final Result Performing Organization Address City/[facility]/ZIP Co de Phone Number [facility] [address] [place] [phone] [phone] * TSH with Reflex to Free T4 (11/02/2024 11:40 AM EDT) [facility] TSH reflex Free T4 0.84 0.32 - 4.0 uIU/mL [facility] Blood Venous blood specimen / Unknown 11/02/2024 11:40 AM EDT 11/02/2024 1:13 PM EDT Meg Menard MD LAB BLOOD ORDERABLES Final Result Performing Organization Address [facility] Co de Phone Number [facility] [address] [place] [address] [phone] * (ABNORMAL) CBC auto differential (11/02/2024 11:40 AM EDT) [facility] White Blood Count 13.3(H) 4.8 - 10.8 X10*3/uL [facility] Red Blood Count 4.38 4.20 - 5.50 X10*6/uL [facility] Hemoglobin 13.3 12.0 - 16.0 g/dl [facility] Hematocrit 39.1 37.0 - 47.0 % [facility] Mean Corpuscular Volume 89.3 80.0 - 98.0 fL [facility] Mean Corpuscular Hemoglobin 30.4 27.0 - 33.0 pg [facility] Mean Corpuscular HGB Conc 34.0 31.0 - 35.0 g/dl [facility] Red Cell Distribution Width 13.1 11.0 - 16.0 % [facility] Platelet Count 291 160 - 400 X10*3/uL [facility] Mean Platelet Volume 13.0(H) 9.4 - 12.3 fL [facility] Neutrophils Percent Auto 55.8 45 - 73 % [facility] Imm Gran Pct Auto 1.0(H) 0.0 - 0.4 % [facility] Lymphocytes Percent Auto 33.4 20 - 40 % [facility] Monocytes Percent Auto 6.0 2 - 11 % [facility] Eosinophils Percent Auto 3.0 0 - 4 % [facility] Basophils Percent Auto 0.8 0 - 2 % [facility] NRBC Pct Auto 0.0 0.0 - 0.2 /100WBC [facility] Neutrophils Absolute Auto 7.4 2.0 - 8.3 x10*3/uL [facility] Imm Gran Abs Auto 0.13(H) 0.00 - 0.03 X10*3/uL [facility] Lymphocytes Absolute Auto 4.4 1.2 - 4.9 X10*3/uL [facility] Monocytes Absolute Auto 0.8 0.1 - 1.2 X10*3/uL [facility] Eosinophils Absolute Auto 0.4 0.0 - 0.4 X10*3/uL [facility] Basophils Absolute Auto 0.1 0.0 - 0.2 X10*3/uL [facility] NRBC Abs Auto 0.000 0.0 - 0.012 X10*3/uL [facility] Blood Venous blood specimen / Unknown 11/02/2024 11:40 AM EDT 11/02/2024 1:13 PM EDT Meg Menard MD LAB BLOOD ORDERABLES Final Result [facility] [address] [place] [phone] * Hemoglobin A1c (11/02/2024 11:40 AM EDT) Hemoglobin A1c 5.3 <6.0 % [facility] Comment:Hemoglobin A1C Refer ence Range Adults: 4.8 - 6.0 % Non diabetic: < 6.0 % Goal: < 7.0 %Additional Action Suggested: > 8.0 %Note: Hemoglobin A1c results are invalid for patients with abnormal amounts of HbF. Blood transfusions may impact the HbA1c concentration in the patient sample. Estimated Average Glucose 105 mg/dL [facility] Comment:eAG = Estimated ave rage glucose which is %A1C expressed asaverage glucose, using the formula of the X8M-IcemjkqNifiaxe Glucose study (ADAG), Diabetes Care, Vol.31,#8,Feb. 2007 Blood Venous blood specimen / Unknown 11/02/2024 11:40 AM EDT 11/02/2024 1:13 PM EDT us Meg Menard MD LAB BLOOD ORDERABLES Final Result [facility] [address] [place] [phone] * (ABNORMAL) Lipid Panel, Standard (11/02/2024 11:40 AM EDT) Triglycerides 132 <150 mg/dL [facility] Comment:Desirable Triglyceri de: less than 150 mg/dLBorderline High Triglyceride 150-199 mg/dLHigh Triglyceride: 200-499 mg/dLVery High Triglyceride: greater than or equal to 5OO mg/dL Cholesterol 184 <200 mg/dL [facility] Comment:Desirable Cholestero l: less than 200 mg/dLBorderline High Cholesterol: 200-239 mg/dLHigh Cholesterol: greater than 239 mg/dL LDL Cholesterol Calculated 102(H) <100 mg/dL [facility] Comment:Desirable LDL: less than 100 mg/dLNear Optimal/Above Optimal LDL: 110- 129 mg/dLBorderline High LDL: 130-159 mg/dLHigh LDL: 160-189 mg/dLVery High LDL: greater than or equal to 190 mg/dL HDL Cholesterol 56 >40 mg/dL [facility] Comment:Desirable HDL: grea ter than 40 mg/dL Note: This HDL assay may give artificially low results in patients with liver disease. Blood Venous blood specimen / Unknown 11/02/2024 11:40 AM EDT 11/02/2024 1:13 PM EDT us Meg Menard MD LAB BLOOD ORDERABLES Final Result [facility] [address] [place] [address] [phone] * (ABNORMAL) Comprehensive Metabolic Panel (11/02/2024 11:40 AM EDT) Sodium 142 135 - 145 mmol/L [facility] Potassium 4.1 3.3 - 5.1 mmol/L [facility] Chloride 107 96 - 108 mmol/L [facility] Carbon Dioxide 28 22 - 29 mmol/L [facility] Anion Gap 11(L) 12 - 20 [facility] Urea Nitrogen (BUN) 12 9 - 16 mg/dL [facility] Creatinine, Serum 0.62 0.5 - 1.4 mg/dL [facility] Estimated Glomerular Filt Rate >60 [facility] Comment:Chronic Kidney Disea se: Estimated GFR < 60 mL/min/1.51e0Auinxv Kidney Disease: Estimated GFR < 15 mL/min/1.73m2 Glucose 81 60 - 115 mg/dL [facility] Calcium 9.0 8.4 - 10.2 mg/dL [facility] Bilirubin, Total 0.3 0.0 - 1.0 mg/dL [facility] Aspartate Amino Transferase 33(H) 5 - 31 U/L [facility] Alanine Aminotransferase 37(H) 0 - 31 U/L [facility] Total Protein 6.4(L) 6.5 - 8.0 g/dL [facility] Albumin Level 4.0 3.5 - 5.0 g/dL [facility] Alkaline Phosphatase 76 39 - 117 U/L [facility] Blood Venous blood specimen / Unknown 11/02/2024 11:40 AM EDT 11/02/2024 1:13 PM EDT us Meg Menard MD LAB BLOOD ORDERABLES Final Result Performing Organization Address City/[facility]/ZIP Co de Phone Number [facility] [address] [place] [phone] [phone] * Influenza B (ID NOW Rapid Molecular) (10/25/2024 11:24 AM EDT) [facility] Influenza B Negative Negative, Indeterminate [facility] Swab 10/25/2024 11:2 4 AM EDT us Aldair Cabrera MD POINT OF CARE TEST ENTER/EDIT OR DERABLES Final Result Performing Organization Address [facility] Co de Phone Number [facility] [address] [place] [phone] * Influenza A (ID NOW Rapid Molecular) (10/25/2024 11:24 AM EDT) [facility] Influenza A Negative Negative, Indeterminate [facility] Swab 10/25/2024 11:2 4 AM EDT Aldair Cabrera MD POINT OF CARE TEST ENTER/EDIT OR DERABLES Final Result Performing Organization Address [facility] Co de Phone Number [facility] [address] [place] [phone] * POCT Rapid COVID Ag (10/25/2024 11:24 AM EDT) [facility] Rapid COVID Ag Negative [facility] Swab 10/25/2024 11:2 4 AM EDT us Aldair Cabrera MD POINT OF CARE TEST ENTER/EDIT OR DERABLES Final Result Performing Organization Address [facility] de Phone Number [facility] [address] [place] [phone] * BI Mammogram Screening Tomosynthesis Bilateral (05/22/2024 3:55 PM EST) Anatomical Region Laterality Modality Breast Bilateral Mammography 05/22/2024 3:55 PM EST Narrative 05/31/2024 12:23 PM EST ? [facility] ? [address] ?[place] [address] ? Mammography Report ? Signed ? Patient: Gan,Bindu L ?MR#: [id number] ?? [id number] ? : 1975 ?Acct:[id number] ? Age/Sex: 49 / F ?ADM Date: 05/22/24 ? Loc: HO.MAMMO ? Attending Dr: Meg Menard MD ? Ordering Physician: Meg Sanchez MD ?Results: ?? 1Negative ? Date of Service: 05/22/24 ?Follow Up: 1 Year From Orig ?? inal Mammogram ? Procedure(s): MM tomosynthesis screening BI ?? Accession Number(s): [id number] ? cc: Meg Sanchez MD ? EXAMINATION: ?? MM SCREENING DIGITAL BREAST TOMOSYNTHESIS, BILATERAL ? CLINICAL INFORMATION: ? Screening. Asymptomatic. ? COMPARISON: ?? Mammography: Comparison is made with available priors ? TECHNIQUE: ?? Digital breast mammography with tomosynthesis is performed in both the ?? craniocaudal and mediolateral oblique views along with computer-aided ?? detection (CAD). ? FINDINGS: ?? There are scattered areas of fibroglandular density (ACR BI-RADS breast ?? composition Category b). ? There are no significant masses, abnormal calcifications, or other ?? abnormalities. ? MM/MM tomosynthesis screening BI ?? IMPRESSION: ?? No mammographic evidence of malignancy. ? ASSESSMENT: ? BI-RADS BI-RADS 1 - Negative ? RECOMMENDATION: ?? Routine annual mammography screening. ? 1 year F/U ? This examination should not preclude the clinical evaluation of a ?? suspicious palpable abnormality. ? This patient's information was entered into a reminder system with a ?? target due date for their next mammogram. ? Electronically signed by: ??Yolie Monsalve DO ??05/31/2024 12:20 PM EST ?? RP ? Dictated By: ?Yolie Monsalve DO ? Signed By: ?<Electronically signed by Yolie Monsalve, DO in OV> ? 05/31/24 1220 ? DD/ 1555 ? TD/TT: 05/22/24 1614 ? Neurophysiology Tech: ? Procedure Note Donotkristiinterpreter, Image - 05/31/2024 [facility] [address] [place] [address] Mammography Report Signed Patient: Bindu Gan LMR#: [id number] : 1975Acct:[id number] Age/Sex: 49 / FADM Date: 05/22/24 Loc: HO.MAMMO Attending Dr: Meg Menard MD Ordering Physician: Meg Sanchez MDResults: 1Negative Date of Service: 05/22/24Follow Up: 1 Year From Orig inal Mammogram Procedure(s): MM tomosynthesis screening BI Accession Number(s): [id number] cc: Meg Sanchez MD EXAMINATION: MM SCREENING DIGITAL BREAST TOMOSYNTHESIS, BILATERAL CLINICAL INFORMATION: Screening. Asymptomatic. COMPARISON: Mammography: Comparison is made with available priors TECHNIQUE: Digital breast mammography with tomosynthesis is performed in both the craniocaudal and mediolateral oblique views along with computer-aided detection (CAD). FINDINGS: There are scattered areas of fibroglandular density (ACR BI-RADS breast composition Category b). There are no significant masses, abnormal calcifications, or other abnormalities. MM/MM tomosynthesis screening BI IMPRESSION: No mammographic evidence of malignancy. ASSESSMENT: BI-RADS BI-RADS 1 - Negative RECOMMENDATION: Routine annual mammography screening. 1 year F/U This examination should not preclude the clinical evaluation of a suspicious palpable abnormality. This patient's information was entered into a reminder system with a target due date for their next mammogram. Electronically signed by: Yolie Monsalve DO 05/31/2024 12:20 PM EST Dictated By: Yolie Monsalve DO Signed By: <Electronically signed by Yolie Monsalve DO in OV> 05/31/24 1220 DD/ 1555 TD/TT: 05/22/24 1614 Neurophysiology Tech: us Meg Menard MD IMG BI PROCEDURES Fin al Result * HIV 1/2 ANTIGEN/ANTIBODY,FOURTH GENERATION W/RFL (03/14/2021 10:01 AM EDT) HIV-1/2 ANTIGEN AND ANTIBODIES, 4TH GENERATION W/ REFLEX NON-REACT HUSSEIN NON-REACT HUSSEIN [facility] Comment: HIV-1 antigen and HIV-1/HIV-2 antibodies were not detected. There is no laboratory evidence of HIV infection. ?? PLEASE NOTE: This information has been disclosed to you from records whose confidentiality may be protected by state law. ??If your state requires such protection, then the state law prohibits you from making any further disclosure of the information without the specific written consent of the person to whom it pertains, or as otherwise permitted by law. A general authorization for the release of medical or other information is NOT sufficient for this purpose. ? For additional information please refer to http://education.[employer]/faq/DBT339 (This link is being provided for informational/ educational purposes only.) ? The performance of this assay has not been clinically validated in patients less than 2 years old. ?? 03/14/2021 10:0 1 AM EDT us Belinda Farfan VICE PRESIDENT OF OPERATIONS LAB BLOOD ORDERABLES Final Res ult [facility] [address] [place] [address], * THINPREP PAP (03/14/2021 12:00 AM EDT) Clinical Information: None given [facility] COMMENT SEE COMMENT [facility] Comment: EXPLANATORY NOTE: ? The Pap is a screening test for cervical cancer. It is ?? not a diagnostic test and is subject to false negative ?? and false positive results. It is most reliable when a ?? satisfactory sample, regularly obtained, is submitted ?? with relevant clinical findings and history, and when ?? the Pap result is evaluated along with historic and ?? current clinical information. ?? Pretzel Packer : SEE COMMENT [facility] Comment: YP, CT(ASCP) CT screening location: [address] ??[address] Interpretation/R esult: Negative for intraepithelial lesion or malignancy. [facility] LMP: NONE GIVEN [facility] Prev. BX: NONE GIVEN [facility] Prev. PAP: 06/2016 ASCUS,HPV- [facility] Review Pretzel Packer : SEE COMMENT [facility] Comment: [facility], CT(ASCP) CT screening location: [address] ??[address] SOURCE: None given [facility] Statement Of Adequacy: SEE COMMENT [facility] Comment: Satisfactory for evaluation. Endocervical/transformation zone component present. Age and/or menstrual status not provided 03/14/2021 Belinda Farfan VICE PRESIDENT OF OPERATIONS LAB PATHOLOGY ORDERABLES Final Result [facility] [address] [place] [address], [place] * HPV mRNA E6/E7 (03/14/2021 12:00 AM EDT) HPV nRNA E6/E7 Not Detected Not Detected [facility] Comment: Methodology: Tafe Lecturer-Mediated Amplification This assay detects E6/E7 viral messenger RNA (mRNA) from 14 high-risk HPV types (16,18,31,33,35,39,45,51,52,56,58,59,66,68). ? The analytical performance characteristics of this assay have been determined by [employer]. The modifications have not been cleared or approved by the FDA. This assay has been validated pursuant to the CLIA regulations and is used for clinical purposes. ?? For additional information, please refer to http://education.[employer]/faq/GQS860y4 (This link if provided for information/ educational purposes only.) 03/14/2021 us Belinda Farfan NP LAB BLOOD ORDERABLES Final Res ult [facility] [address] from Last 3 Months or Most Recently Relevant to Health Maintenance Insurance [facility] C3 N PARTIAL [facility] DENTAL - HSN PARTIAL (MEDICAID) Care Teams Oriental Rug Repairer Relationship Specialty Start Date End Date Meg Sanchez MD [address] [place] [address] PCP - General Internal Medicine 05/13/23
--- OUTSIDE RECORDS SUMMARY | 2024-11-02 14:23 | XMS_ITS | Encounter Summary ---
Author Organization [employer] Address [address] [place] [address] Care Team Providers Care Pattern Grader Name Role Phone Meg Sanchez MD Primary Care Provide r Encounter Details Date Type Department Care Team ([facility] st Contact Info) Description 08/13/[address] [facility] [address] [place] [address] Waqar Dowd Social History Tobacco Use Types Packs/Day Years Used Date Smoking Tobacco: Every Day Cigarettes 0.5 15 Smokeless Tobacco: Never Depression Answer Date Recorded Patient Health Questionnaire-9 Score 2 05/13/2023 Patient Health Questionnaire-9 Score 2 05/13/2023 Last PHQ-9: Questionnaire Data Not on file 1 Housing Stability Answer Date Recorded What is your housing situation today? I have eva santoro 05/13/[address] you li ve. Do you have problems with any of the following? None of the above 05/13/2023 Food Insecurity Answer Date Recorded Within the past 12 months, y ou worried that your food would run out before you got money to buy more: Never True 05/13/2023 Within the past 12 months,th e food you bought just didn't last and you didn't have enough money to get more: Never True Transportation Answer Date Recorded In the past 12 months, has l ack of transportation kept you from medical appts, meetings, work or from getting things needed for daily living? No 05/13/2023 Utilities Answer Date Recorded In the past 12 months, has t he electric, gas, oil or water company threatened to shut off services in your home? No 05/13/2023 Depression Answer Date Recorded Patient Health Questionnaire-2 Score 1 05/13/2023 Comments Unknown Sex and Gender Information Value Date Recorded Sex Assigned at Female 05/18/2022 10:30 AM EDT Legal Sex Female 10:30 AM EDT Gender Identity Female 05/18/2022 10:30 AM EDT Sexual Orientation Straight 04/14/2023 12 :15 PM EDT documented as of this encounter Plan of Treatment Upcoming Encounters Date Type Department Care Team (Late st Contact Info) Description 12/14/2024 10:45 AM EDT Telemedicine [facility] [address] [place] [address] Meg Sanchez MD [address] [place] [address] documented as of this encounter Visit Diagnoses Not on filedocumented in this encounter Additional Health Concerns Assessment Noted Time PHQ-9 Depression Total Score: 2 05/13/20 23 2:00 PM EDT documented as of this encounter Care Teams Pattern Grader Relationship Specialty Start Date End Date Meg Sanchez MD [address] [place] [address] PCP - General Internal Medicine 05/13/23 documented as of this encounter
--- OUTSIDE RECORDS SUMMARY | 2024-11-02 14:23 | XMS_ITS | Encounter Summary ---
Author Organization [employer] Address [address] [place] [address] Care Team Providers Care Driving Instructor Name Role Phone Meg Sanchez MD Primary Care Provide r Encounter Details Date Type Department Care Team ([facility] st Contact Info) Description 05/28/2023 Abstract [facility] [address] [place] [address] Em Dean DDS [address] [place] [address] Social History Tobacco Use Types Packs/Day Years [...] Info) Description 12/14/2024 10:45 AM EDT Telemedicine [facility] [address] [place] [phone] Meg Sanchez MD [address] [place] [address] documented as of this encounter Visit Diagnoses Not on filedocumented in this encounter Additional Health Concerns Assessment Noted Time PHQ-9 Depression Total Score: 2 05/13/20 23 2:00 PM EDT documented as of this encounter Care Teams Driving Instructor Relationship Specialty Start Date End Date Meg Sanchez MD [address] [place] [phone] PCP - General Internal Medicine 05/13/23 documented as of this encounter
--- OUTSIDE RECORDS SUMMARY | 2024-11-02 14:23 | XMS_ITS | Encounter Summary ---
Author Organization [employer] Address [address] [place] [address] Care Team Providers Care Barrel Centerer Name Role Phone Meg Sanchez MD Primary Care Provide r Encounter Details Date Type Department Care Team ([facility] st Contact Info) Description 05/28/2023 Abstract [facility] [address] [place] [address] Em Dean DDS [address] [place] [address] Social History Tobacco Use Types Packs/Day Years [...] Info) Description 12/14/2024 10:[address] [facility] [address] [place] [phone] Meg Sanchez MD [address] [place] [address] documented as of this encounter Visit Diagnoses Not on filedocumented in this encounter Additional Health Concerns Assessment Noted Time PHQ-9 Depression Total Score: 2 05/13/20 23 2:00 PM EDT documented as of this encounter Care Teams Barrel Centerer Relationship Specialty Start Date End Date Meg Sanchez MD [address] [place] [id number] PCP - General Internal Medicine 05/13/23 documented as of this encounter
--- OUTSIDE RECORDS SUMMARY | 2024-11-02 14:24 | XMS_ITS | Encounter Summary ---
Author Organization [employer] Address [address] [facility] [address] [place] [address] Care Team Providers Care Senior Counsel Name Role Phone Meg Sanchez MD Primary Care Provide r Encounter Details Date Type Department Care Team ([facility] st Contact Info) Description 11/02/2024 10:45 AM EDT Office Visit [facility] [address] [place] [address] Meg Sanchez MD [address] [place] [address] Class 2 obesity without serious comorbidity with body mass index (BMI) of 38.0 to 38.9 in adult, unspecified obesity type (Primary Dx) Social History Tobacco Use Types Packs/Day Years [...] PM EDT documented as of this encounter Last Filed Vital Signs Vital Sign Reading [...] Mass Index 38.45 11/02/2024 10:52 AM EDT documented in this encounter Progress Notes * Meg Menard MD - 11/02/2024 10:45 AM EDT SUBJECTIVE: Bindu Gan is a 49 y.o. year old female who presents for Follow up . Patient reports her GERD and heartburn are completely resolved now after she took omeprazole 40 mg,she is now much better and is not taking this medication anymore Patient also reports her sinus problems are for now stable Acute Concerns: Patient is here today because she is very concerned about her weight, she reports she has been trying diet and exercise for a long time and she has not been successful in losing weight Social History Social History Narrative Not on file Patient Active Problem List Diagnosis Hyperlipidemia Anxiety with depression Health care maintenance Class 3 severe obesity due to excess calories without serious comorbidity in adult Colon cancer screening Bronchitis Tobacco dependence Class 2 obesity without serious comorbidity with body mass index (BMI) of 38.0 to 38.9 in adult Gastroesophageal reflux disease with esophagitis without hemorrhage Epigastric pain Acute maxillary sinusitis Hypokalemia GERD (gastroesophageal reflux disease) Elevated blood pressure reading No family history on file. Review of Systems Constitutional: Negative. HENT: Negative. Respiratory: Negative. Cardiovascular: Negative. OBJECTIVE: Vitals: 11/02/24 1052 BP: 128/80 BP Location: Left arm Patient Position: Sitting BP Cuff Size: Adult Pulse: 65 Resp: 20 Temp: 97.3 ??F (36.3 ??C) TempSrc: Oral SpO2: 99% Weight: 245 lb 8 oz (111 kg) Height: 5' 7 (1.702 m) Physical Exam Constitutional: Appearance: Normal appearance. Cardiovascular: Rate and Rhythm: Normal rate and regular rhythm. Pulmonary: Effort: Pulmonary effort is normal. Breath sounds: Normal breath sounds. Abdominal: General: Abdomen is flat. Palpations: Abdomen is soft. Musculoskeletal: Right lower leg: No edema. Left lower leg: No edema. Neurological: Mental Status: She is alert. Follow Up: Follow up in about 4 weeks (around 11/30/2024) for televisit weight monitoring . Current Outpatient Medications on File Prior to Visit Medication Sig Dispense Refill albuterol 108 (90 Base) MCG/ACT inhaler Inhale 2 puffs every 6 (six) hours if needed for wheezing. 18 g 0 azithromycin (Zithromax) 250 MG tablet Take 2 tabs PO daily x 1d then 1 tab PO daily on D2 to D5 6 tablet 0 Blood Pressure kit 1 each 2 times daily. 1 kit 0 fluticasone (Flonase) 50 MCG/ACT nasal spray Administer 1-2 sprays into each nostril Once per day. Shake gently. Before first use, prime pump. After use, clean tip and replace cap. 16 g 2 nicotine polacrilex (Commit) 2 MG lozenge Dissolve 1 lozenge (2 mg) in the mouth if needed for smoking cessation. 100 lozenge 0 nicotine polacrilex (Nicorette) 4 MG gum Chew 1 each (4 mg) if needed for smoking cessation. 100 each 0 pantoprazole (ProtoNix) 40 MG EC tablet TAKE 1 TABLET (40 MG) BY MOUTH BEFORE BREAKFAST. DO NOT CRUSH, CHEW, OR SPLIT. 90 tablet 0 [] predniSONE (Deltasone) 20 MG tablet Take 2 tablets (40 mg) by mouth Once per day for 5 days. 10 tablet 0 Saline 0.9 % solution Administer 1 drop into affected nostril(s) 2 times daily. 15 mL 0 semaglutide (Ozempic) 2 MG/1.5ML solution pen-injector Inject 0.25 mg under the skin 1 (one) time per week. 1 each 12 No current facility-administered medications on file prior to visit. Problem List Items Addressed This Visit Class 2 obesity without serious comorbidity with body mass index (BMI) of 38.0 to 38.9 in adult - Primary Today extensive discussion was done about life [...] educated about side effects of these medications Relevant Medications phentermine 15 MG capsule topiramate (Topamax) 25 MG tablet documented in this encounter Miscellaneous Notes * Assessment & Plan Note - Meg Menard MD - 11/02/2024 1:51 PM EDT Associated Problem(s): Class 2 obesity without serious comorbidity with body mass index (BMI) of 38.0 to 38.9 in adult Today extensive discussion was done about life [...] educated about side effects of these medications documented in this encounter Plan of Treatment Upcoming Encounters Date Type Department Care Team (Late st Contact Info) Description 12/14/2024 10:45 AM EDT Telemedicine [facility] [address] [place] [phone] Meg Sanchez MD [address] [place] [address] documented as of this encounter Visit Diagnoses Diagnosis Class 2 obesity without serious comorbidity with body mass index (BMI) of 38.0 to 38.9 in adult, unspecified obesity type- Primary documented in this encounter Additional Health Concerns Assessment Noted Time PHQ-9 Depression Total Score: 0 06/12/20 24 12:38 PM EST documented as of this encounter Care Teams Senior Counsel Relationship Specialty Start Date End Date Meg Sanchez MD [address] [place] [id number] PCP - General Internal Medicine 05/13/23 documented as of this encounter
--- OUTSIDE RECORDS SUMMARY | 2024-11-02 14:24 | XMS_ITS | Encounter Summary ---
Author Organization [employer] Address [address] [place] [address] Care Team Providers Care Learning Disabilities Specialist Name Role Phone Meg Sanchez MD Primary Care Provide r Encounter Details Date Type Department Care Team (Latest Contact Info) Description 11/01/2024 Travel Social History Tobacco Use Types Packs/Day [...] Access Q2 Not on file 06/12/2024 Comments Unknown Sex and Gender Information Value [...] 12/14/2024 10:45 AM EDT Telemedicine [facility] [address] [place] [phone] Meg Sanchez MD [address] [place] [phone] documented as of this encounter Visit Diagnoses Not on filedocumented in this encounter Additional Health Concerns Assessment Noted Time PHQ-9 Depression Total Score: 0 06/12/20 24 12:38 PM EST documented as of this encounter Care Teams Learning Disabilities Specialist Relationship Specialty Start Date End Date Meg Sanchez MD [address] [place] [id number] PCP - General Internal Medicine 05/13/23 documented as of this encounter
[2024-11-03 08:01] LABS: HIV AB/AG Nonreactive (Nonreactive); HIV Num 1 0.05 S/CO (0.00-0.99); ~HepC Num1 0.16 S/CO (0.00-0.79); ~Hepatitis C Antibody Nonreactive (Nonreactive)
== END 2024-11-02 11:36 | disposition home or self-care (01) ==
LOC: HO.HHCL 11:35
PROVIDERS: Visit Provider Internal Medicine
DX: K21.9 Gastro-esophageal reflux disease without esophagitis (principal)
CPT/HCPCS: 36415; 80053; 80061; 82306; 83036; 84443; 85025; 86803; 87389

== ENCOUNTER 2025-02-18 21:26 | Emergency (ER) | payer MEDICAID, SELFPAY ==
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
[2025-02-18 21:28] VITALS: BP 156/72; PULSE 67; RESP 20; TEMP 36.7; O2SAT 96; BMI 37.6
--- OUTSIDE RECORDS SUMMARY | 2025-02-18 22:31 | XMS_ITS | Encounter Summary ---
Author Organization [employer] Address [address] [place] [address] Care Team Providers Care Formula Bottler Name Role Phone Meg Sanchez MD Primary Care Provide r Encounter Details Date Type Department Care Team (Late st Contact Info) Description 08/13/2023 Abstract [facility] [address] [place] [address] Waqar Dowd Social History Tobacco Use Types [...] as of this encounter Plan of Treatment Not on file documented as of this encounter Visit Diagnoses Not on filedocumented in this encounter Additional Health Concerns Assessment Noted Time PHQ-9 Depression Total Score: 2 05/13/20 2:00 PM EDT documented as of this encounter Care Teams Formula Bottler Relationship Specialty Start Date End Date Meg Sanchez MD [address] [place] [address] PCP - General Internal Medicine 05/13/23 documented as of this encounter
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
[2025-02-18] MEDS: diazePAM 10 MG/2 ML CARTRIDGE 5 MG IVPUSH (23:36)
[2025-02-19 01:01] VITALS: BP 144/82; PULSE 57; RESP 16; O2SAT 98
[2025-02-19 02:20] VITALS: BP 144/82; PULSE 57; RESP 16; TEMP 36.7; O2SAT 98
== END 2025-02-19 03:01 | disposition home or self-care (01) ==
PROVIDERS: Emergency Provider Emergency Medicine
DX: S13.4XXA Sprain of ligaments of cervical spine, initial encounter (principal); Y99.9 Unspecified external cause status; R51.9 Headache, unspecified; V49.88XA Car occupant (driver) (passenger) injured in other specified transport accidents, initial encounter; Y93.89 Activity, other specified; Y92.9 Unspecified place or not applicable; M54.2 Cervicalgia
CPT/HCPCS: 72125; 96361; 96374; 96375; 99283; 99284; J1100; J1885; J2405; J3360

== ENCOUNTER → 2025-02-18 23:10 | Outpatient (BNV) | payer MEDICAID, SELFPAY | PROVIDERS: Emergency Provider Emergency Medicine; Visit Provider Radiology Diagnostic Radiology | DX: M47.812 Spondylosis without myelopathy or radiculopathy, cervical region (principal) | CPT/HCPCS: 72125 ==

== ENCOUNTER 2025-05-29 15:56 | Outpatient (REF) | payer OTHER, SELFPAY ==
--- NOTE | ~2025-05-29 | MM_ITS ---
EXAMINATION: MM SCREENING DIGITAL BREAST TOMOSYNTHESIS, BILATERAL CLINICAL INFORMATION: Screening. Asymptomatic. COMPARISON: Mammography: Comparison is made with available priors TECHNIQUE: Digital breast mammography with tomosynthesis is performed in both the craniocaudal and mediolateral oblique views along with computer-aided detection (CAD). FINDINGS: There are scattered areas of fibroglandular density. There are no significant masses, abnormal calcifications, or other abnormalities. MM/MM tomosynthesis screening BI IMPRESSION: No mammographic evidence of malignancy. ASSESSMENT: BI-RADS Category 1: Negative RECOMMENDATION: Routine annual mammography screening. 1 year F/U This examination should not preclude the clinical evaluation of a suspicious palpable abnormality. This patient's information was entered into a reminder system with a target due date for their next mammogram. Electronically signed by: Yolie Monsalve DO 05/29/2025 05:44 PM PAUL
--- OUTSIDE RECORDS SUMMARY | 2025-05-29 17:19 | XMS_ITS | Clinical Summary ---
Author Organization [employer] Address [address] [place] [address] 7[address] [place] [address] Care Team Providers Care Supervisor Machining Name Role Phone Meg Sanchez MD Primary Care Provide r Allergies No known active allergies Medications albuterol 108 (90 Base) MCG/ACT inhalerIndicati ons:Bronchitis Inhale 2 puffs every 6 (six) hours if needed for wheezing. 18 g 07/09/20 23 Active semaglutide (Ozempic) 2 MG/1.5ML solution pen-injectorInd ications:Class 2 obesity due to excess calories without serious comorbidity with body mass index (BMI) of 38.0 to 38.9 in adult Inject 0.25 mg under the skin 1 (one) time per week. 1 each 12 10/28/19 24 Active Saline 0.9 % solutionIndicat ions:Acute maxillary sinusitis, recurrence not specified Administer 1 drop into affected nostril(s) 2 times daily. 15 mL 06/13/20 24 Active nicotine polacrilex (Commit) 2 MG lozenge Dissolve 1 lozenge (2 mg) in the mouth if needed for smoking cessation. 100 lozenge 10/26/19 25 Active azithromycin (Zithromax) 250 MG tabletIndicatio ns:Bronchitis Take 2 tabs PO daily x 1d then 1 tab PO daily on D2 to D5 6 tablet 10/26/19 25 Active Blood Pressure kit 1 each 2 times daily. 1 kit 10/26/19 25 026 Active fluticasone (Flonase) 50 MCG/ACT nasal sprayIndication s:Acute maxillary sinusitis, recurrence not specified ADMINISTER 1-2 SPRAYS INTO EACH NOSTRIL ONCE PER DAY. SHAKE GENTLY. BEFORE FIRST USE, PRIME PUMP. AFTER USE, CLEAN TIP AND REPLACE CAP. 48 mL 1 02/06/20 25 026 Active pantoprazole (ProtoNix) 40 MG EC tablet TAKE 1 TABLET BY MOUTH BEFORE BREAKFAST. DO NOT CRUSH, CHEW, OR SPLIT. 90 tablet 04/26/20 25 Active topiramate (Topamax) 25 MG tabletIndicatio ns:Class 2 obesity without serious comorbidity with body mass index (BMI) of 38.0 to 38.9 in adult, unspecified obesity type TAKE 1 TABLET BY MOUTH EVERY DAY 30 tablet 1 05/03/20 25 Active phentermine 37.5 MG capsuleIndicati ons:Class 2 obesity without serious comorbidity with body mass index (BMI) of 38.0 to 38.9 in adult, unspecified obesity type TAKE 1 CAPSULE BY MOUTH BEFORE BREAKFAST 28 capsule 2 05/04/20 25 Active phentermine 37.5 MG capsuleIndicati ons:Class 2 obesity without serious comorbidity with body mass index (BMI) of 38.0 to 38.9 in adult, unspecified obesity type TAKE 1 CAPSULE (37.5 MG) BY MOUTH BEFORE BREAKFAST 30 capsule 1 03/02/20 25 025 Discontinued topiramate (Topamax) 25 MG tabletIndicatio ns:Class 2 obesity without serious comorbidity with body mass index (BMI) of 38.0 to 38.9 in adult, unspecified obesity type TAKE 1 TABLET BY MOUTH EVERY DAY 30 tablet 1 03/02/20 25 025 Discontinued Active Problems Problem Noted Date Diagnosed Date Whiplash injury syndrome 03/01/2025 Assessment & Plan (03/02/2025 11:51 AM EDT): Apply heat on affected area I will prescribe for her Flexeril 5 mg 3 times a day as needed (I reviewed with her side effects of this medication is somnolence and that she cannot drive while taking this medication) I prescribed for her acetaminophen to be taken as needed I refer her to physical therapy Epigastric pain 06/13/2024 Assessment & Plan (06/13/2024 [...] worse report back or come directly to [facility] Hypokalemia 06/13/2024 Assessment & Plan (06/13/2024 4:22 [...] 38.9 in adult 10/28/2023 Assessment & Plan (12/14/2024 10:56 AM EDT): Extensive counseling about healthy diet and exercise done today I will go up on phentermine to 37.5 mg Plan is to bring her here in about 6 weeks for weight monitoring and review if she has any side effects Assessment & Plan (11/02/2024 1:51 PM EDT): [...] EDT): Counseling done patient will consider medications N referral done Health care maintenance 05/13/2023 Colon cancer screening 05/13/2023 Hyperlipidemia 03/19/2021 05/12/2023 Resolved Problems Problem Noted Date Diagnosed Date Resolved Date Class 3 severe obesity due t o excess calories without serious comorbidity in adult 05/13/2023 Assessment & Plan (05/13/2023 2:44 PM EDT): Counseling done today Patient will consider going to bariatric specialist Encounters Date Type Department Care Team Description 05/04/2025 Refill [facility] [address] [place] [address] Meg Sanchez MD Class 2 obesity without serious comorbidity with body mass index (BMI) of 38.0 to 38.9 in adult, unspecified obesity type 05/02/2025 Refill [facility] [address] [place] [address] Meg Sanchez MD Class 2 obesity without serious comorbidity with body mass index (BMI) of 38.0 to 38.9 in adult, unspecified obesity type 04/25/2025 Refill [facility] [address] [place] [address] Meg Sanchez MD 04/02/2025 Refill [facility] [address] [place] [address] Meg Sanchez MD Class 2 obesity without serious comorbidity with body mass index (BMI) of 38.0 to 38.9 in adult, unspecified obesity type 2025 Telephone [facility] [address] [place] [address] Meg Sanchez MD 03/01/2025 3:15 PM EDT Office Visit [facility] [address] [place] [phone] Meg Sanchez MD Whiplash injury to neck, initial encounter (Primary Dx) 03/01/2025 Refill [facility] [address] [place] [address] Meg Sanchez MD Class 2 obesity without serious comorbidity with body mass index (BMI) of 38.0 to 38.9 in adult, unspecified obesity type 03/01/2025 Travel 02/27/2025 Telephone [facility] [address] [place], [place] [phone] Meg Sanchez MD Nurse Triage from Last 3 Months Immunizations Immunization Administration Dates Next Due Influenza injectable quadriv [...] Sign Reading Time Taken Comments Blood Pressure 130/89 03/01/2025 3:24 PM EDT Pulse 68 03/01/2025 3:24 PM EDT Temperature 36.7 C (98 F) 03/01/2025 3:24 PM EDT Respiratory Rate 20 03/01/2025 3:24 PM EDT Oxygen Saturation 99% 11/02/2024 10:52 AM EDT Inhaled Oxygen Concentration - - Weight 107 kg (235 lb) 03/01/2025 3:24 PM EDT Height 170.2 cm (5' 7 ) 03/01/2025 3:24 PM EDT Body Mass Index 36.81 03/01/2025 3:24 PM EDT Plan of Treatment Health Maintenance Due Date Last Done Comments CT Colonography 1974 Colonoscopy 1974 Colorectal Cancer Screening 1974 FIT DNA/Cologuard 1974 FIT 1974 FOBT 1974 Sigmoidoscopy 1974 Family Planning (PISQ) 1989 Hepatitis B Vaccines (1 of 3 - 19+ 3-dose series) 1993 Pneumococcal Vaccine: 50+ Years (1 of 2 - PCV) 1993 Dental Oral Exam 2024 09/24/2023, 04/28/2023 Dental Prophylaxis 2024 09/24/2023 Zoster Vaccines (1 of 2) 2024 Dental X-Ray: Bitewings 04/29/2024 04/28/2023 COVID-19 Vaccine (2 - 2024- season) 2025 10/25/2020 Influenza Vaccine (#1) 2025 06/24/2016 Mammogram 05/22/2025 05/22/2024, 04/20, 05/13/2022, Additional history exists Depression Screening 06/12/2025 06/12/2024, 06/12/20 24 SDOH Screening 06/12/2025 06/12/2024 Alcohol/Substance Use Screening 11/02/2025 11/02/2024 Disability Screening 11/02/2025 11/02/2024 Tobacco Screening 11/02/2025 11/02/2024 Cervical Cancer Screening 03/14/2026 HPV/Cotest 03/14/2026 03/14/2021, 06/24/2016 Pap Smear 03/14/2026 03/14/2021 Dental X-Ray: Full Mouth 04/29/2026 04/28/2023 Lipid Panel 11/02/2029 11/02/2024, 1211/2022, 03/14/2021 DTaP/Tdap/Td Vaccines (2 - Td or Tdap) 01/31/2031 01/31/2021 RSV Patients and Patients Aged 60 years or older (1 - 1-dose 75+ series) 2049 HIV Screening Completed 11/02/2024, 03/14/2021 Hepatitis C Screening Completed 11/02/2024 HIB Vaccines Aged Out No longer eligi [...] patient's age to complete this topic Meningococcal B Vaccine Aged Out No l onger eligible based on patient's age to complete [...] Procedure Name Priority Date/Time Associated Diagnosis Comments HEPATITIS C AB W/REFL TO HCV RNA, QN, PCR Routine 11/02/2024 11:40 AM EDT Gastroesophageal reflux disease, unspecified whether esophagitis present HIV 1/2 ANTIGEN/ANTIBODY, FOURTH GENERATION W/RFL Routine 11/02/2024 11:40 AM EDT Gastroesophageal reflux disease, unspecified whether esophagitis present LIPID PANEL, STANDARD Routine 11/02/2024 11:40 AM EDT Gastroesophageal reflux disease, unspecified whether esophagitis present BI MAMMOGRAM SCREENING TOMOSYNTHESIS BILATERAL Routine 05/22/2024 3:55 PM EST Full PROPHYLAXIS - ADULT Routine 09/24/2023 11:00 AM EST PERIODIC ORAL EVALUATION - ESTABLISHED PATIENT Routine 09/24/2023 11:00 AM EST INTRAORAL - COMPLETE SERIES OF RADIOGRAPHIC IMAGES Routine 04/28/2023 11:00 AM EDT HPV MRNA E6/E7 Routine 03/14/2021 12:00 AM EDT THINPREP PAP Routine 03/14/2021 12:00 AM EDT from Last 3 Months or Most Recently Relevant to Health Maintenance Results * Hepatitis C Antibody with Reflex to HCV, RNA, Quantitative, Real-Time PCR (11/02/2024 11:40 AM EDT) Hepatitis C Antibody Nonreactive Nonreactive [facility] Comment:Antibodies to HCV no t detected; does not exclude early acuteHCV infection. Blood Venous blood specimen / Unknown 11/02/2024 11:40 AM EDT 11/02/2024 1:13 PM EDT us Meg Menard MD LAB BLOOD ORDERABLES Final Result [facility] [address] [place] [phone] * HIV-1/2 Antigen and Antibodies, Fourth Generation, with Reflexes (11/02/2024 11:40 AM EDT) HIV AB/AG Nonreactive Nonreactive [facility] Comment:HIV-1 p24 Ag and/or HIV-1/HIV-2 Ab not detected.A test result that is nonreactive does not exclude thepossibility of exposure to or infection with HIV-1 and/orHIV-2. Nonreactive results in this assay for individualswith prior exposure to HIV-1 and/or HIV-2 may be due toantigen and antibody levels that are below the limit ofdetection of this assay.The [employer] HIV Ag/Ab Combo assay result andsupplemental assay results should be interpreted inconjunction with the patient's clinical presentation,history and other laboratory results. If the results areinconsistent with clinical evidence, additional testing issuggested to confirm the result. Blood Venous blood specimen / Unknown 11/02/2024 11:40 AM EDT 11/02/2024 1:13 PM EDT us Meg Menard MD LAB BLOOD ORDERABLES Final Result Performing Organization Address City/[facility]/ZIP Co de Phone Number [facility] [address] [place] [phone] * (ABNORMAL) Lipid Panel, Standard (11/02/2024 11:40 AM EDT) Triglycerides 132 <150 mg/dL [facility] Comment:Desirable Triglyceri de: less than 150 mg/dLBorderline High Triglyceride 150-199 mg/dLHigh Triglyceride: 200-499 mg/dLVery High Triglyceride: greater than or equal to 5OO mg/dL Cholesterol 184 <200 mg/dL [facility] Comment:Desirable Cholestero l: less than 200 mg/dLBorderline High Cholesterol: 200-239 mg/dLHigh Cholesterol: greater than 239 mg/dL LDL Cholesterol Calculated 102(H) <100 mg/dL [facility] Comment:Desirable LDL: less than 100 mg/dLNear Optimal/Above Optimal LDL: 110- 129 mg/dLBorderline High LDL: 130-159 mg/dLHigh LDL: 160-189 mg/dLVery High LDL: greater than or equal to 190 mg/dL HDL Cholesterol 56 >40 mg/dL [facility] Comment:Desirable HDL: great er than 40 mg/dL Note: This HDL assay may give artificially low results in patients with liver disease. Blood Venous blood specimen / Unknown 11/02/2024 11:40 AM EDT 11/02/2024 1:13 PM EDT us Meg Menard MD LAB BLOOD ORDERABLES Final Result Performing Organization Address City/[facility]/ZIP Co de Phone Number [facility] [address] [place] [phone] * BI Mammogram Screening Tomosynthesis Bilateral (05/22/2024 3:55 PM EST) Anatomical Region Laterality Modality Breast Bilateral Mammography 05/22/2024 3:55 PM EST Narrative 05/31/2024 12:23 PM EST [facility] [address] [place], [place] [address] Mammography Report Signed Patient: Bindu Gan MR#: [id number] : 1975 Acct:[id number] Age/Sex: 49 / F ADM Date: 05/22/24 Loc: HO.MAMMO Attending Dr: Meg Menard MD Ordering Physician: Meg Sanchez MD Results: 1Negative Date of Service: 05/22/24 Follow Up: 1 Year From Orig inal Mammogram Procedure(s): MM tomosynthesis screening BI Accession Number(s): [id number] cc: Meg Sanchez MD EXAMINATION: MM SCREENING [...] by: Yolie Monsalve DO 05/31/2024 12:20 PM [facility] Dictated By: Yolie Monsalve DO Signed By: <Electronically signed by Yolie Monsalve DO in OV> 05/31/24 1220 DD/ 1555 TD/TT: 05/22/24 1614 Irrigation Equipment Remover: Procedure Note Donotuseinterpreter, Image - 05/31/2024 [facility] [address] [place] [address] Mammography Report Signed Patient: Bindu Gan LMR#: [id number] : 1975Acct:[id number] Age/Sex: 49 / FADM Date: 05/22/24 Loc: HO.MAMMO Attending Dr: Meg Menard MD Ordering Physician: Meg Sanchez MDResults: 1Negative Date of Service: 05/22/24Follow Up: 1 Year From Orig ina Mammogram Procedure(s): MM tomosynthesis screening BI Accession Number(s): [id number] cc: Meg Sanchez MD EXAMINATION: MM SCREENING [...] by: Yolie Monsalve DO 05/31/2024 12:20 PM [facility] Dictated By: Yolie Monsalve DO Signed By: <Electronically signed by Yolie Monsalve DO in OV> 05/31/24 1220 DD/ 1555 TD/TT: 05/22/24 1614 Irrigation Equipment Remover: us Meg Menard MD IMG BI PROCEDURES Fin al Result * THINPREP PAP (03/14/2021 12:00 AM EDT) Clinical Information: None given [facility] COMMENT SEE COMMENT [facility] Comment: EXPLANATORY NOTE: The Pap is a screening test for cervical cancer. It is not a diagnostic test and is subject to false negative and false positive results. It is most reliable when a satisfactory sample, regularly obtained, is submitted with relevant clinical findings and history, and when the Pap result is evaluated along with historic and current clinical information. Green Marketing Specialist : SEE COMMENT [facility] Comment: YP, CT(ASCP) CT screening location: [place] [address] Interpretation/R esult: Negative for intraepithelial lesion or malignancy. [facility] LMP: NONE GIVEN [facility] Prev. BX: NONE GIVEN [facility] Prev. PAP: 06/2016 ASCUS,HPV- [facility] Review Green Marketing Specialist : SEE COMMENT [facility] Comment: [facility], CT(ASCP) CT screening location: [place] [address] SOURCE: None given [facility] Statement Of Adequacy: SEE COMMENT [facility] Comment: Satisfactory for evaluation. Endocervical/transformation zone component present. Age and/or menstrual status not provided 03/14/2021 Belinda Farfan NP LAB PATHOLOGY ORDERABLES Final Result [facility] [address] * HPV mRNA E6/E7 (03/14/2021 12:00 AM EDT) HPV nRNA E6/E7 Not Detected Not Detected [facility] Comment: Methodology: Hot Strip Finisher-Mediated Amplification This assay detects E6/E7 viral messenger RNA (mRNA) from 14 high-risk HPV types (16,18,31,33,35,39,45,51,52,56,58,59,66,68). The analytical performance characteristics of this assay have been determined by [employer]. The modifications have not been cleared or approved by the FDA. This assay has been validated pursuant to the CLIA regulations and is used for clinical purposes. For additional information, please refer to http://education.[employer]/faq/IOB549y4 (This link if provided for information/ educational purposes only.) 03/14/2021 Belinda Farfan NP LAB BLOOD ORDERABLES Final Res ult [facility] [address] from Last 3 Months or Most Recently Relevant to Health Maintenance Insurance [facility] C3 HSN PARTIAL [facility] D[facility] - HSN PARTIAL (MEDICAID) [place] Care Teams Supervisor Machining Relationship Specialty Start Date End Date Meg Sanchez MD [address] [place] [address] PCP - General Internal Medicine 05/13/23
--- OUTSIDE RECORDS SUMMARY | 2025-05-29 17:19 | XMS_ITS | Encounter Summary ---
Author Organization [employer] Address [address] [place] [address] Care Team Providers Care Bisque Finisher Name Role Phone Meg Sanchez MD Primary Care Provide r Encounter Details Date Type Department Care Team (Late st Contact Info) Description 08/13/2023 Abstract [facility] [address] [place] [address] Waqar Dowd Social History Tobacco Use Types [...] documented as of this encounter Care Teams Bisque Finisher Relationship Specialty Start Date End Date Meg Sanchez MD [address] [place] [address] PCP - General Internal Medicine 05/13/23 documented as of this encounter
--- OUTSIDE RECORDS SUMMARY | 2025-05-29 17:19 | XMS_ITS | Encounter Summary ---
Author Organization [employer] Address [address] [place] [address] Care Team Providers Care Global Account Executive Name Role Phone Meg Sanchez MD Primary Care Provide r Encounter Details Date Type Department Care Team ([facility] st Contact Info) Description 05/28/2023 Abstract [facility] [address] [place] [address] Em Dean, DDS [address] [place] [address] Social History Tobacco Use Types Packs/Day Years [...] documented as of this encounter Care Teams Global Account Executive Relationship Specialty Start Date End Date Meg Sanchez MD [address] [place] [address] PCP - General Internal Medicine 05/13/23 documented as of this encounter
--- OUTSIDE RECORDS SUMMARY | 2025-05-29 17:19 | XMS_ITS | Encounter Summary ---
Author Organization [employer] Address [address] [place] [address] [address]t [place] [address] Care Team Providers Care Supervisor [employer] Name Role Phone Meg Sanchez MD Primary Care Provide r Reason for Visit * Reason Onset Date Comments Med Refill 04/02/2025 Encounter Details Date Type Department Care Team (Late st Contact Info) Description 04/02/2025 Refill [facility] [address] [place] [address] Meg Sanchez MD [address] [place] [address] Class 2 obesity without serious comorbidity with body mass index (BMI) of 38.0 to 38.9 in adult, unspecified obesity type Social History Tobacco Use Types Packs/Day Years [...] to 38.9 in adult, unspecified obesity type documented in this encounter Additional Health Concerns Assessment Noted Time PHQ-9 Depression Total Score: 0 06/12/20 24 12:38 PM EST documented as of this encounter Care Teams Supervisor [employer] Relationship Specialty Start Date End Date Meg Sanchez MD [address] [place] [phone] PCP - General Internal Medicine 05/13/23 documented as of this encounter
--- OUTSIDE RECORDS SUMMARY | 2025-05-29 17:19 | XMS_ITS | Encounter Summary ---
Author Organization [employer] Address [address] [place] [address] Care Team Providers Care Sammying Machine Operator Name Role Phone Meg Sanchez MD Primary Care Provide r Encounter Details Date Type Department Care Team ([facility] st Contact Info) Description 05/28/2023 Abstract [facility] [address] [place] [address] Em Dean, DDS [address] [place] [address] Social History Tobacco Use Types Packs/Day Years [...] documented as of this encounter Care Teams Sammying Machine Operator Relationship Specialty Start Date End Date Meg Sanchez MD [address] [place] [address] PCP - General Internal Medicine 05/13/23 documented as of this encounter
== END 2025-05-29 15:57 | disposition home or self-care (01) ==
LOC: HO.MAMMO 15:56
PROVIDERS: PCP Internal Medicine; Visit Provider Internal Medicine
DX: Z12.31 Encounter for screening mammogram for malignant neoplasm of breast (principal)
CPT/HCPCS: 77063; 77067

== ENCOUNTER → 2025-05-29 16:00 | Outpatient (BNV) | payer OTHER, SELFPAY | PROVIDERS: PCP Internal Medicine; Visit Provider Internal Medicine | DX: Z12.31 Encounter for screening mammogram for malignant neoplasm of breast (principal) | CPT/HCPCS: 77063; 77067 ==

== ENCOUNTER 2025-06-05 16:00 | Outpatient (RCR) | payer OTHER, SELFPAY | END 2025-07-16 09:29 | disposition home or self-care (01) | LOC: HO.PT 16:00 | PROVIDERS: PCP Internal Medicine; Visit Provider Internal Medicine | DX: S13.4XXD Sprain of ligaments of cervical spine, subsequent encounter (principal) | CPT/HCPCS: 97014; 97110; 97112; 97140; 97162 ==